=== PATIENT | female | born 1975 ===

== ENCOUNTER 2016-11-29 07:34 | Emergency (ER) | payer OTHER ==
[2016-11-29 07:38] VITALS: BP 114/69; PULSE 73; RESP 18; TEMP 98.2; O2SAT 100
[2016-11-29 07:39] VITALS: BMI 18.8
--- NOTE | 2016-11-29 09:59 | ED PDOC ---
HPI: General Adult Time Seen by Provider: 11/29/16 08:11 Chief Complaint (Nursing): ENT Problem Chief Complaint (Provider): Nodule on neck History Per: Patient History/Exam Limitations: no limitations Onset/Duration Of Symptoms: Days Current Symptoms Are (Timing): Still Present Additional Complaint(s): 41 y/o female presents to the emergency department after noticing a node on her neck a couple of days ago. Patient is concerned because uncle has a history of lymphoma. Reports she visits her primary care doctor kenny with recent completed blood work and thyroid check up with normal results. Denies throat pain, difficulty swallowing, fever, body aches, sweats, fatigue, chills, neck pain, and chest pain. Past Medical History Reviewed: Historical Data, Nursing Documentation, Vital Signs Vital Signs: Last Vital Signs Temp 98.2 F 11/29/16 07:38 Pulse 73 11/29/16 07:38 Resp 18 11/29/16 07:38 BP 114/69 11/29/16 07:38 Pulse Ox 100 11/29/16 10:05 - Medical History PMH: Osteoporosis, Seizures (R/T electrolyte imbalance) Denies: Chronic Kidney Disease - Surgical History Surgical History: Appendectomy - Family History Family History: States: No Known Family Hx - Social History Current smoker - smoking cessation education provided: No Alcohol: Social Drugs: Denies - Home Medications Home Medications: Ambulatory Orders Medication Instructions Recorded Aspirin [Ecotrin] 81 mg PO DAILY #30 tabec 05/19/16 Atorvastatin [Lipitor] 40 mg PO DIN #30 tab 05/19/16 - Allergies Allergies/Adverse Reactions: Allergies Allergy/AdvReac Type Severity Reaction Status Date / Time No Known Allergies Allergy Verified 11/29/16 07:46 Review of Systems ROS Statement: Except As Marked, All Systems Reviewed And Found Negative Constitutional: Negative for: Fever (Body aches or fatigue), Chills, Sweats, Other (Body aches) ENT: Negative for: Throat Pain, Other (Difficulty swallowing) Cardiovascular: Negative for: Chest Pain Musculoskeletal: Positive for: Other (Noted nodule on her neck). Negative for: Neck Pain Physical Exam - Reviewed Nursing Documentation Reviewed: Yes Vital Signs Reviewed: Yes - Physical Exam Appears: Positive for: Non-toxic, No Acute Distress Head Exam: Positive for: ATRAUMATIC, NORMAL INSPECTION, NORMOCEPHALIC Skin: Positive for: Normal Color, Warm, Dry Eye Exam: Positive for: Normal appearance, EOMI, PERRL ENT: Positive for: Normal ENT Inspection Neck: Positive for: Normal (Thyroid exam normal. No swelling or masses noted on the neck. ), Supple Cardiovascular/Chest: Positive for: Regular Rate, Rhythm. Negative for: Murmur Respiratory: Positive for: Normal Breath Sounds. Negative for: Accessory Muscle Use, Respiratory Distress Lymphatic: Positive for: Normal Exam. Negative for: Adenopathy Neurologic/Psych: Positive for: Alert, Oriented (x3) - ECG O2 Sat by Pulse Oximetry: 100 (RA) Pulse Ox Interpretation: Normal Medical Decision Making Medical Decision Making: Time: 08:11 Initial impression: Normal exam, differential includes thyroid nodule. Initial plan: --Referred to primary care for follow up with blood work and ultrasound. Time: 954 Patient is medically stable, and requires no further treatment in the ED at this time. Patient will be discharged home. Counseling was provided and all questions were answered regarding diagnosis and need for follow up with primary care doctor. There is agreement to discharge plan. Return if symptoms persist or worsen. Clinical Impression: Nodule of neck Scribe Attestation: Documented by Dorita Platt, acting as a scribe for Paolo Vargas MD. Provider Scribe Attestation: All medical record entries made by the Scribe were at my direction and personally dictated by me. I have reviewed the chart and agree that the record accurately reflects my personal performance of the history, physical exam, medical decision making, and the department course for this patient. I have also personally directed, reviewed, and agree with the discharge instructions and disposition. Disposition - Clinical Impression Clinical Impression: Nodule of neck Doctor Will See Patient In The: Office Counseled Patient/Family Regarding: Studies Performed, Diagnosis, Need For Followup - Disposition Referrals: [facility] [Outside] Disposition: Routine/Home Disposition Time: 09:55 Condition: GOOD Additional Instructions: Follow up with your PCP in 2-3 days. Instructions: Thyroid Nodules (ED)
== END 2016-11-29 10:03 | disposition home or self-care (01) ==
LOC: H.ER 07:34
DX: R22.1 Localized swelling, mass and lump, neck (principal)